=== PATIENT | female | born 1950 | race Caucasian/White ===

== ENCOUNTER 2019-03-05 18:40 | Inpatient (IN) | payer MEDICAID ==
[~2019-03-05] VITALS: Ht 157.4 cm; Wt 54.4 kg
[~2019-03-05 18:40] MED LIST: BIAXIN FILMTAB250 MG PO; CIPRO250 MG PO; CIPROFLOXACIN250 MG PO; CLONAZEPAM1 M1 PO; Carafate1 GM/10 ML PO; EXELON9.5 MG/24 T; LEVOTHYROXIN0.125 MG PO; LISINOPRIL10 M1 PO; LISINOPRIL5 MG PO; METFORMIN500 MG PO; MIRTAZAPINE15 M2 PO; MOTRIN800 MG PO; NORCO 5-325 TA1 EACH PO; NORVASC5 MG PO; OMEPRAZOLE D/R20 MG PO; OYSTER CAL 500500 MG PO; PRILOSEC20 M1 PO; PROTONIX40 MG PO; RISPERIDONE M-TA1 MG BC; SINGULAIR10 MG PO; SYNTHROID,LEV100 MCG PO; SYNTHROID,LEV125 MCG PO; VITAMIN D50000 I3 PO
[2019-03-05 18:48] VITALS: BP 124/44
[2019-03-05 19:15] LABS: BASO # 0.1 10*3/uL (0.0-0.1); BASO % 0.4 % (0.0-1.0); EOS # 0.2 10*3/uL (0.0-0.4); EOS % 1.4 % (1.0-4.0); HEMATOCRIT 42.6 % (37.0-47.0); HEMOGLOBIN 13.2 g/dl (12.0-16.0); LYMPH % 8.1 % (27.0-41.0); MEAN CELL VOLUME 95.5 fl (81.0-99.0); MEAN CORPUSCULAR HGB 29.6 pg (27.0-31.0); MONO # 1.2 10*3/uL (0.1-1.0); MONO % 9.2 % (3.0-9.0); NEUT # 10.1 10*3/uL (2.3-7.9); NEUT % 80.5 % (47.0-73.0); PLATELET COUNT AUTOMATED 188 10*3/uL (130-400); RED BLOOD COUNT 4.46 10*6/uL (4.10-5.10); RED CELL DISTRI WIDTH 15.1 % (0-14.5); WHITE BLOOD COUNT 12.5 10*3/uL (4.8-10.8)
[2019-03-05 19:32] LABS: ALBUMIN 3.4 gm/dl (3.1-4.5); ALKALINE PHOSPHATASE 125 U/L (45-117); BUN 20 mg/dl (7-24); CHLORIDE 105 mmol/L (98-107); POTASSIUM 4.5 mmol/L (3.5-5.1); SGOT/AST 41 IU/L (3-35); SGPT/ALT 45 U/L (12-78); SODIUM 138 mmol/L (136-145)
[2019-03-05 19:37] LABS: TROPONIN I < 0.015 ng/ml (<0.045)
--- NOTE | 2019-03-05 19:39 | NUR ---
PT IS AWARE WE NEED URINE SAMPLE BUT DOES NOT HAVE TO GO AT THIS TIME CALL LIGHT IN REACH
[2019-03-05 19:50] LABS: ACT PARTIAL THROMBO TIME 27.3 SECONDS (20.0-32.1)
--- NOTE | 2019-03-05 20:22 | NUR ---
URINE OBTAINED AND SENT PT REFUSED STRAIGHT CATH WAS ABLE TO SIT ON BEDSIDE COMMODE AND PROVIDE URINE
[2019-03-05 20:25] VITALS: BP 146/58
[2019-03-05 20:25] LABS: BILIRUBIN NEGATIVE (NEGATIVE); BLOOD 2+ (NEGATIVE); CLARITY CLOUDY (CLEAR); COLOR YELLOW (YELLOW); GLUCOSE NEGATIVE (NEGATIVE); KETONE NEGATIVE (NEGATIVE); LEUKO ESTERASE 1+ (NEGATIVE); NITRITE POSITIVE (NEGATIVE); PH 6.5 (5.0-9.0); SPECIFIC GRAVITY 1.025 (1.005-1.030); UROBILINOGEN 0.2 E.U./dl (0.2-1.0)
[2019-03-05 20:36] LABS: RBC 0-2 rbc/hpf (0-2)
[2019-03-05 20:37] LABS: BACTERIA 2+; MUCOUS 2+
[2019-03-05 21:00] VITALS: BP 127/43
--- NOTE | 2019-03-05 21:00 | NUR ---
A 68, admitted to 4E, under the services of Dr. CHINYERE PETTY,ASHLEY Orlando with a diagnosis of UTI, SYNCOPE & COLLAPSE. Chief complaint is SYCOPE. Patient arrived via stretcher from ER. Monitor applied. Initial assessment completed. Vital signs taken and recorded. DR. CHINYERE PETTY,ASHLEY Orlando notified of admission to the unit. Orders received. See assessment for past medical history, medications and allergies. Patient and/or family oriented to unit. [facility] visitation policy reviewed. Clothing/patient valuable form completed. XIANG BANG
[2019-03-05] MEDS ORDERED: ROBITUSSIN5 ML PO (21:24)
[2019-03-05] MEDS ORDERED: MELATONIN5 M1 PO (21:25)
[2019-03-05] MEDS ORDERED: NAMENDA10 MG PO (21:26)
[2019-03-05] MEDS ORDERED: POTASSIUM CHLO10 ME5 PO (21:27)
[2019-03-05] MEDS ORDERED: RIVASTIGMINE TAR6 M1 PO (21:27)
[2019-03-05] MEDS ORDERED: MAALOX ADVANCE355 M1 PO (21:29)
[2019-03-05] MEDS ORDERED: VITAMIN D50000 UNIT PO (21:30)
[2019-03-05] MEDS ORDERED: CRANBERRY300 MG PO (21:30)
[2019-03-05] MEDS ORDERED: TAB-A-VITE1 EACH PO (21:30)
[2019-03-05] MEDS ORDERED: MILK OF MA400 MG/5 M PO (21:32)
[2019-03-05] MEDS ORDERED: TYLENOL325 M1 PO (21:32)
[2019-03-05] MEDS ORDERED: PRILOSEC20 M1 PO (21:35)
--- NOTE | 2019-03-05 21:35 | NUR ---
MED REC UP TO DATE PER PAPERWORK FROM [facility].
--- NOTE | 2019-03-05 21:38 | NUR ---
ATTEMPTED TO CALL FOR ADMISSION ORDERS. NO ANSWER. WILL ATTEMPT TO CALL AGAIN.
--- NOTE | 2019-03-05 21:42 | NUR ---
RETURNED PHONE CALL. NEW ADMISSION ORDERS RECEIVED.
[2019-03-06] VITALS: BP 127/45
[2019-03-06 07:30] VITALS: BP 132/50
--- NOTE | 2019-03-06 08:05 | NUR ---
PHYSICAL THERAPY Maribeth received as well as PT orders will follow thank you Juany Lindsey PT
--- NOTE | 2019-03-06 08:35 | NUR ---
PT RESTING IN BED. RESP-EASY AND REGULAR. IVF INFUSING WITH NO PROBLEM. LUNGS DIMINISHED T/O. NO C/O AT THIS TIME. CALL LIGHT IN REACH. STUDENT NURSE WITH PT ALSO TODAY. WILL CON'T TO MONITOR.
--- NOTE | 2019-03-06 08:42 | NUR ---
ASSESSMENT COMPLETED AND DOCUMENTED, PT IS SITTING UP IN BED RESTING, NO COMPLAINTS OF PAIN OR DISCOMFORT AT THIS TIME. RUTHIE BENITO SPCC
--- NOTE | 2019-03-06 09:00 | NUR ---
Silica Mixer Operator in to see patient. She is a LTC resident at [facility] and plans to return there upon discharge. She is ambulatory with a walker. planner following. UTI, rocephin, UC pending.
--- NOTE | 2019-03-06 10:15 | NUR ---
PT. IS RESTING IN BED WHILE WATCHING TELEVISION, DENIES ANY PAIN AT THIS TIME, RUTHIE BENITO SPNRCC
--- NOTE | 2019-03-06 10:49 | NUR ---
Patient comes in from [facility]. Ok to return when medically stable for discharge.
[2019-03-06 12:00] VITALS: BP 132/54
--- NOTE | 2019-03-06 12:20 | NUR ---
PT. IS PREPARING FOR A BATH, HAS NO COMPLAINTS AT THIS TIME, PT, DENIES ANY PAIN. RUTHIE BENITO SPSANDROCC
--- NOTE | 2019-03-06 13:46 | NUR ---
PT. IS SITTNG UP IN BED WATCHING TELEVISON, DENIES ANY PAIN, VERY COOPERATIVE AND PLESANT RUTHIE BENITO SPNRCC
[2019-03-06 16:00] VITALS: BP 126/79
--- NOTE | 2019-03-06 16:05 | NUR ---
RESTING IN BED. NO C/O AT THIS TIME. RESP-EASY AND REGULAR. CALL LIGHT IN REACH. SEE SHIFT ASSESSMENT.
--- NOTE | 2019-03-06 16:14 | NUR ---
Nursing screen received and chart reviewed. Patient is admitted from [facility]. If patient should have a decline in ADLs from baseline then refer to OT. Thank you. Nely Leonardo OTR/l
[2019-03-06 20:00] VITALS: BP 113/71
--- NOTE | 2019-03-06 20:05 | NUR ---
PT REPOSITIONED SELF IN BED. RESP-EASY AND REGULAR. IVF INFUSING WITH NO PROBLEM. NO C/O AT THIS TIME. CALL LIGHT IN REACH.
--- NOTE | 2019-03-06 21:30 | NUR ---
TOLERATED ROUTINE MED WITH NO PROBLEM. CALL LIGHT IN REACH.
--- NOTE | 2019-03-06 22:40 | NUR ---
CALLED DR. PEOPLES REGARDING PT REQUESTING COUGH MEDICATION. ORDER TAKEN AND REVIEWED.
[2019-03-07] VITALS: BP 120/46
--- NOTE | 2019-03-07 08:10 | NUR ---
PT RESTING IN BED. RESP-EASY AND REGULAR. NO C/O AT THIS TIME. CALL LIGHT IN REACH. SEE SHIFT ASSESSMENT.
[2019-03-07 12:00] VITALS: BP 125/50
[2019-03-07 16:00] VITALS: BP 122/52
--- NOTE | 2019-03-07 16:00 | NUR ---
PT RESTING IN BED. NO C/O AT THIS TIME. CALL LIGHT IN REACH. SEE SHIFT ASSESSMENT.
--- NOTE | 2019-03-07 18:00 | NUR ---
TOLERATED ROUTINE MED WITH NO PROBLEM. NO C/O AT THIS TIME. CALL LIGHT IN REACH. BED ALARM ON.
--- NOTE | 2019-03-07 19:00 | NUR ---
SPOKE WITH DR. WHITLOCK REGARDING PT UNABLE TO SWALLOW MUCINEX AND WE ARE UNABLE TO CRUSH MED. HE DISCONTINUED IT. NO NEW ORDER.
[2019-03-07 20:00] VITALS: BP 105/46
[2019-03-08] VITALS: BP 124/49
--- NOTE | 2019-03-08 05:44 | NUR ---
24 HR. CHART CHECK COMPLETE.
--- NOTE | 2019-03-08 05:58 | NUR ---
PATIENT IS REFUSING ORTHOS AT THIS TIME.
[2019-03-08 07:36] VITALS: BP 130/60
--- NOTE | 2019-03-08 07:54 | NUR ---
PT LAYING IN BED, EATING BREAKFAST, ASSESSMENT COMPLETED, NO COMPLAINTS AT THIS TIME, WILL CONTINUE TO MONITOR. BAILEY LARSEN.RCC
--- NOTE | 2019-03-08 09:00 | NUR ---
Foreign Student Adviser in to see patient. No new needs or request at this time. When medically stable she will be discharged to [facility] where she is a LTC resident. cyber policy and strategy planner following. UTI, +UC treated with rocephin.
--- NOTE | 2019-03-08 10:33 | NUR ---
PT COOPERATIVE, LAYING IN BED WATCHING TELEVISION, NO COMPLAINTS AT THIS TIME, WILL CONTINUE TO MONITOR. [facility]AILEY KEY [facility]
[2019-03-08 12:18] VITALS: BP 120/60
--- NOTE | 2019-03-08 12:26 | NUR ---
PT IS COOPERATIVE, LAYING IN BED WATCHING TELEVISION, LOOKING OVER THE MENU FOR LUNCH, NO COMPLAINTS AT THIS TIME. BAILEY KEY SPCC
--- NOTE | 2019-03-08 13:22 | NUR ---
PT LAYING IN BED, CONVERSATING WITH ROOMMATE, NO COMPLAINTS AT THIS TIME, REPORT GIVEN TO JENNA. BAILEY KEY SPCC
--- NOTE | 2019-03-08 15:42 | NUR ---
PHYSICAL THERAPY Alice completed pt moderated complexity level 31452 recomend snf at discharge PT to work on transfers,lore kline AD for balance/safety and stregthening Juany Lindsey PT
[2019-03-08 16:00] VITALS: BP 103/70
--- NOTE | 2019-03-08 19:15 | NUR ---
24 HR. CHART CHECK COMPLETE.
[2019-03-08 20:00] VITALS: BP 122/80
--- NOTE | 2019-03-08 21:30 | NUR ---
PREVIOUS IV LEAKING. NEW #24G IV STARTED IN PATIENTS RIGHT ARM ACCORDING TO POLICY AND PROCEDURE. PATIENT TOLERATED WELL, CALL LIGHT IS WITHIN REACH.
[2019-03-09] VITALS: BP 134/71
--- NOTE | 2019-03-09 07:22 | NUR ---
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
[2019-03-09 08:00] VITALS: BP 110/50; BP 117/54
--- NOTE | 2019-03-09 08:15 | NUR ---
Discussed discharge planning with Dr. Keller. Plan is to discharge patient today to [facility] where she is a LTC resident. planner scheduler following.
--- NOTE | 2019-03-09 09:38 | NUR ---
PHYSICAL THERAPY Patient presented to therapy in supine in bed with head of bed elevated and report of no pain or other complaints. Patient gives informed consent for treatment. Patient was identified by name and on wristband. Patient performed supine to sitting on EOB transfer with SBA. Patient sit to stand from EOB with MIN A X 1. Patient performed ambulation with WH WALKER and CGA X 1 for 50' x 1 and no LOB. Patient sat on EOB and performed bilateral LE ther ex x 10 reps each in all planes of movement for strengthening in order to improve patient's functional mobilitty. Patient transferred back to supine in bed with SBA. Patient was left in supine in bed with call light within reach, bed alarm activated, and head of bed elevated. Patient was 1:1 with this RIG MANAGER for 17 minutes total. EDSON GOSS RIG MANAGER
[2019-03-09] MEDS ORDERED: AUGMENTIN 875-875 MG PO (10:30)
--- NOTE | 2019-03-09 11:14 | NUR ---
Patient is discharged to return to [facility]. [facility], nursing/wardrobe specialty worker and legal guardian all notified.
[2019-03-09 12:00] VITALS: BP 120/62
--- NOTE | 2019-03-09 12:04 | NUR ---
ELECTRICAL PROSPECTING ENGINEER CALLED AT THIS TIME REGARDING 8 BEAT RUN OF V-TACH. PT ASYMPTOMATIC. NEW ORDERS RECEIVED.
--- NOTE | 2019-03-09 12:05 | NUR ---
OFFICE NOTIFIED OF CONSULT.
--- NOTE | 2019-03-09 12:08 | NUR ---
Patients discharge was cancelled due to run of V-tach. Ambulance cancelled, message left for legal guardian, [facility] notified
--- NOTE | 2019-03-09 12:31 | NUR ---
IN TO SEE PATIENT REGARDING CARDIOLOGY CONSULT.
--- NOTE | 2019-03-09 13:42 | NUR ---
PHYSICAL THERAPY Patient declined therapy this afternoon due to waiting to see Dr. Greco , her stage producer about a potential heart issue. No therapy provided for this reason this afternoon. EDSON GOSS FREELANCE PROGRAMMER/APP DEVELOPER
[2019-03-09 14:26] LABS: ALKALINE PHOSPHATASE 85 U/L (45-117); BUN 19 mg/dl (7-24); CHLORIDE 108 mmol/L (98-107); CREATININE 1.08 mg/dL (0.55-1.02); POTASSIUM 3.8 mmol/L (3.5-5.1); SGOT/AST 34 IU/L (3-35); SGPT/ALT 40 U/L (12-78); SODIUM 139 mmol/L (136-145); TOTAL PROTEIN 7.4 gm/dL (6.4-8.2)
[2019-03-09 16:00] VITALS: BP 119/61
[2019-03-09 20:00] VITALS: BP 121/64
--- NOTE | 2019-03-09 20:12 | NUR ---
24 HR chart check completed.
--- NOTE | 2019-03-09 20:45 | NUR ---
RESTING IN BED, NO DISTRESS NOTED. RESPIRATIONS EASY. LUNGS DIMINISHED, CLEAR. PULSE OX 92% RA. CALL LIGHT WITHIN REACH. NO VOICED COMPLAINTS. BED ALARM MAINTAINED FOR SAFETY
--- NOTE | 2019-03-09 23:00 | NUR ---
SLEEPING, AWAKENS EASILY. NO DISTRESS NOTED. NO VOICED COMPLAINTS
[2019-03-10] VITALS: BP 111/89
--- NOTE | 2019-03-10 01:00 | NUR ---
SLEEPING. NO DISTRESS NOTED. RESPIRATIONS EASY. VSS. CALL LIGHT WITHIN REACH. BED ALARM MAINTAINED FOR SAFETY
--- NOTE | 2019-03-10 06:00 | NUR ---
SLEPT THROUGHOUT NIGHT WITH NO DISTRESS NOTED. RESPIRATIONS EASY. CALL LIGHT WITHIN REACH. NO VOICED COMPLAINTS THIS SHIFT. NPO STATUS MAINTAINED FOR TESTING THIS AM
--- NOTE | 2019-03-10 07:30 | NUR ---
PT LAYING IN BED RESTING, ASSESSMENT COMPLETED, NPO STATUS MAINTAINED, WILL CONTINUE TO MONITOR. [facility]AILEY [facility]
[2019-03-10 07:32] VITALS: BP 130/80
--- NOTE | 2019-03-10 07:59 | NUR ---
Updated clinicals faxed to [facility] for review. patient is [facility] and ok to return when medically stable for discharge.
--- NOTE | 2019-03-10 08:25 | NUR ---
PHYSICAL THERAPY Patient was resting supine in bed this am when approached for therapy visit and reports just being IV prepped for a stress test. Will continue per POC as able later this date. Micha Reveles, INSURANCE ANALYST
--- NOTE | 2019-03-10 08:44 | NUR ---
PT OFF FLOOR FOR STRESS TEST.
--- NOTE | 2019-03-10 09:00 | NUR ---
Shrub Planter in to see patient. No new needs or request at this time. When medically stable she will be discharged to [facility] where she is a LTC resident. maintenance planner following. She is scheduled for a stress test today.
--- NOTE | 2019-03-10 09:30 | NUR ---
INFORMED CONSENT OBTAINED FOR LEXISCAN NUCLEAR STRESS TEST WITH DR. ANDERSON. RESTING EKG NSR WITH A RESTING HR OF 79 AND BP OF 100/58. LUNGS CLEAR WITH SPO2 OF 95% ON ROOM AIR. PT COMPLETED A 1:00 LEXISCAN PROTOCOL RECEIVING LEXISCAN 0.4 MG IV OVER 10 SECONDS. HAD NO CHEST PAIN OR ANY EKG CHANGES. HAD AN OCCASIONAL PVC. HAD C/O OF FEELING SHORTNESS OF BREATH THAT WAS RELIEVED IN RECOVERY. HAD A PEAK HR OF 128 WITH BP 102/48. LAST RECOVERY HR OF 109 WITH BP OF 102/64. AWAITING SCANNING IN STABLE CONDITION.
--- NOTE | 2019-03-10 11:14 | NUR ---
PT LAYING IN BED RESTING, RETURNED FROM STRESS TEST, NO COMPLAINTS AT THIS TIME, WILL CONTINUE TO MONITER. BAILEY KEY SPNRCC
[2019-03-10 12:49] VITALS: BP 120/80
--- NOTE | 2019-03-10 12:55 | NUR ---
PT LAYING IN BED ORDERING LUNCH, NO COMPLAINTS AT THIS TIME, WILL CONTINUE TO MONITOR. BAILEY KEY [facility]
--- NOTE | 2019-03-10 13:25 | NUR ---
PHYSICAL THERAPY Patient was resting comfortably supine in bed this pm when approached for therapy visit and reports feeling too tired to participate following recent return from stress test. Patient remained in bed and will continue per POC as tolerated. Micha Reveles, WHEEL MOLDER
--- NOTE | 2019-03-10 13:33 | NUR ---
PT LAYING IN BED, REPORT GIVEN TO JOAQUIN. BAILEY KEY SPNRCC
--- NOTE | 2019-03-10 14:45 | NUR ---
PHYSICAL THERAPY CO-SIGN I approve of the Physical Therapy notes written above. Juany Lindsey PT
[2019-03-10 16:00] VITALS: BP 118/44
--- NOTE | 2019-03-10 19:55 | NUR ---
24 HR/ENTIRE chart check completed.
[2019-03-10 20:00] VITALS: BP 105/42
[2019-03-11] VITALS: BP 121/52
--- NOTE | 2019-03-11 00:15 | NUR ---
A 68, admitted to , under the services of Dr. CHINYERE PETTY,ASHLEY Orlando with a diagnosis of COPD, CHEST HEAVINESS. Chief complaint is SOB. Patient arrived via bed from ER. Monitor applied. Initial assessment completed. Vital signs taken and recorded. DR. CHINYERE PETTY,ASHLEY Orlando notified of admission to the unit. Orders received. See assessment for past medical history, medications and allergies. Patient and/or family oriented to unit. [facility] visitation policy reviewed. Clothing/patient valuable form completed. LOVELY HERNANDEZ
--- NOTE | 2019-03-11 03:48 | NUR ---
Patient sleeping. Respirations relaxed and easy. Siderails up . [place] on. LOVELY HERNANDEZ
--- NOTE | 2019-03-11 03:52 | NUR ---
24 HR chart check completed.
--- NOTE | 2019-03-11 09:16 | NUR ---
CCDISA Discharge instructions reviewed with patient/family. Patient receptive and verbalizes understanding. Follow-up care arranged. Written instructions given to patient/family. JOAQUIN GRANADOS
== END 2019-03-11 09:16 | DRG 204 ==
LOC: ED 18:40 → EDHOLD 20:31 → 4E 20:31
PROVIDERS: Emergency Medicine; Hospitalist; Nurse Practitioner Family; ADMIT Internal Medicine
PROC: 4A02XM4 Measurement of Cardiac Total Activity, External Approach (ICD-10-PCS; principal; 2019-03-10)
PROC: 3E073KZ Introduction of Other Diagnostic Substance into Coronary Artery, Percutaneous Approach (ICD-10-PCS; 2019-03-10)
DX: R55 Syncope and collapse (principal); N30.01 Acute cystitis with hematuria; I47.2 Ventricular tachycardia; B96.1 Klebsiella pneumoniae [K. pneumoniae] as the cause of diseases classified elsewhere; R62.7 Adult failure to thrive; R54 Age-related physical debility; F33.3 Major depressive disorder, recurrent, severe with psychotic symptoms; G30.9 Alzheimer's disease, unspecified; F02.80 Dementia in other diseases classified elsewhere, unspecified severity, without behavioral disturbance, psychotic disturbance, mood disturbance, and anxiety; K21.0 Gastro-esophageal reflux disease with esophagitis; E03.9 Hypothyroidism, unspecified; F41.1 Generalized anxiety disorder; J45.21 Mild intermittent asthma with (acute) exacerbation; E11.9 Type 2 diabetes mellitus without complications; I10 Essential (primary) hypertension; Z68.21 Body mass index [BMI] 21.0-21.9, adult; Z88.8 Allergy status to other drugs, medicaments and biological substances; Z80.1 Family history of malignant neoplasm of trachea, bronchus and lung; Z82.49 Family history of ischemic heart disease and other diseases of the circulatory system; Z82.3 Family history of stroke; Z87.11 Personal history of peptic ulcer disease; Z79.899 Other long term (current) drug therapy; Z85.89 Personal history of malignant neoplasm of other organs and systems

== ENCOUNTER 2019-04-06 18:19 | Emergency (ER) | payer MEDICAID ==
[~2019-04-06] VITALS: Ht 157.4 cm; Wt 52.6 kg
[~2019-04-06 18:19] MED LIST changes: +AUGMENTIN 875-875 MG PO; +CRANBERRY300 MG PO; +MAALOX ADVANCE355 M1 PO; +MELATONIN5 M1 PO; +MILK OF MA400 MG/5 M PO; +NAMENDA10 MG PO; +POTASSIUM CHLO10 ME5 PO; +RIVASTIGMINE TAR6 M1 PO; +ROBITUSSIN5 ML PO; +TAB-A-VITE1 EACH PO; +TYLENOL325 M1 PO; +VITAMIN D50000 UNIT PO
[2019-04-06 18:56] LABS: BASO # 0.1 10*3/uL (0.0-0.1); BASO % 0.5 % (0.0-1.0); EOS # 0.4 10*3/uL (0.0-0.4); EOS % 3.7 % (1.0-4.0); HEMATOCRIT 43.2 % (37.0-47.0); HEMOGLOBIN 13.3 g/dl (12.0-16.0); LYMPH # 2.4 10*3/uL (1.3-4.4); MEAN CELL VOLUME 95.6 fl (81.0-99.0); MEAN CORPUSCULAR HGB 29.4 pg (27.0-31.0); MEAN CORPUSCULAR HGB CONC 30.8 g/dl (33.0-37.0); MEAN PLATELET VOLUME 10.1 fl (9.6-12.3); MONO # 0.9 10*3/uL (0.1-1.0); MONO % 8.5 % (3.0-9.0); NEUT # 6.7 10*3/uL (2.3-7.9); NEUT % 63.7 % (47.0-73.0); PLATELET COUNT AUTOMATED 182 10*3/uL (130-400); RED BLOOD COUNT 4.52 10*6/uL (4.10-5.10); RED CELL DISTRI WIDTH 15.1 % (0-14.5); WHITE BLOOD COUNT 10.5 10*3/uL (4.8-10.8)
[2019-04-06 19:15] LABS: ALBUMIN 3.2 gm/dl (3.1-4.5); ALKALINE PHOSPHATASE 114 U/L (45-117); BUN 21 mg/dl (7-24); CHLORIDE 113 mmol/L (98-107); CREATININE 1.29 mg/dL (0.55-1.02); LIPASE 190 U/L (73-393); POTASSIUM 4.6 mmol/L (3.5-5.1); SGOT/AST 32 IU/L (3-35); SGPT/ALT 33 U/L (12-78); SODIUM 139 mmol/L (136-145); TOTAL PROTEIN 7.5 gm/dL (6.4-8.2)
[2019-04-06 19:21] LABS: TROPONIN I < 0.015 ng/ml (<0.045)
[2019-04-06 19:24] LABS: ACT PARTIAL THROMBO TIME 27.3 SECONDS (20.0-32.1); INTERNATIONAL NORM RATIO 0.9 (2.0-3.5)
[2019-04-06 22:51] LABS: BILIRUBIN NEGATIVE (NEGATIVE); BLOOD NEGATIVE (NEGATIVE); CLARITY CLEAR (CLEAR); COLOR YELLOW (YELLOW); GLUCOSE NEGATIVE (NEGATIVE); KETONE NEGATIVE (NEGATIVE); LEUKO ESTERASE NEGATIVE (NEGATIVE); NITRITE NEGATIVE (NEGATIVE); PH 5.5 (5.0-9.0); SPECIFIC GRAVITY 1.015 (1.005-1.030); UROBILINOGEN 0.2 E.U./dl (0.2-1.0)
[2019-04-06 23:00] LABS: BACTERIA 2+
[2019-04-06] MEDS ORDERED: Ipratropium Brom3 ML INH (23:21)
[2019-04-06] MEDS ORDERED: CRANBERRY200 MG PO (23:22)
[2019-04-06] MEDS ORDERED: FLORASTOR250 MG PO (23:24)
== END 2019-04-06 23:55 | disposition other institution (70) ==
LOC: ED 18:19
PROVIDERS: Nurse Practitioner Family
DX: R55 Syncope and collapse (principal); E11.9 Type 2 diabetes mellitus without complications; K21.9 Gastro-esophageal reflux disease without esophagitis; I10 Essential (primary) hypertension; E03.9 Hypothyroidism, unspecified; J45.909 Unspecified asthma, uncomplicated; F32.9 Major depressive disorder, single episode, unspecified; F41.9 Anxiety disorder, unspecified; Z88.8 Allergy status to other drugs, medicaments and biological substances; Z79.899 Other long term (current) drug therapy

== ENCOUNTER 2021-01-03 12:24 | Emergency (ER) | payer MEDICAID ==
[~2021-01-03 12:24] MED LIST changes: +CRANBERRY200 MG PO; +FLORASTOR250 MG PO; +Ipratropium Brom3 ML INH
[2021-01-03 14:29] LABS: BILIRUBIN Negative (Negative); BLOOD Negative (Negative); CLARITY Cloudy (Clear); COLOR Yellow (Yellow); GLUCOSE Negative (Negative); KETONE Negative (Negative); LEUKO ESTERASE 1+ (Negative); NITRITE Negative (Negative); SPECIFIC GRAVITY 1.015 (1.001-1.030); UROBILINOGEN 0.2 E.U./dl (0.0-1.0)
[2021-01-03 15:19] LABS: BACTERIA 4+; WBC 51-100 wbc/hpf (0-5)
[2021-01-03] MEDS ORDERED: CIPRO500 MG PO (16:09)
== END 2021-01-03 18:00 | disposition home or self-care (01) ==
LOC: ED 12:24
PROVIDERS: Physician Assistant
DX: N39.0 Urinary tract infection, site not specified (principal); R46.89 Other symptoms and signs involving appearance and behavior; Z88.8 Allergy status to other drugs, medicaments and biological substances; Z79.899 Other long term (current) drug therapy

== ENCOUNTER → 2021-02-24 | Outpatient (CLI) | payer MEDICAID ==
[~2021-02-24] MED LIST changes: +CIPRO500 MG PO
== END | disposition home or self-care (01) ==
LOC: US 09:00
PROVIDERS: ATTEND Internal Medicine
DX: D25.9 Leiomyoma of uterus, unspecified (principal); N83.292 Other ovarian cyst, left side; G30.9 Alzheimer's disease, unspecified; R65.10 Systemic inflammatory response syndrome (SIRS) of non-infectious origin without acute organ dysfunction; M62.81 Muscle weakness (generalized)

== ENCOUNTER 2024-02-25 09:38 | Emergency (ER) | payer MEDICAID ==
[~2024-02-25] VITALS: Ht 154.9 cm; Wt 50.1 kg
[2024-02-25] MEDS ORDERED: VITAMIN D325 MCG PO (09:57)
[2024-02-25] MEDS ORDERED: COL-RITE100 M1 PO (09:58)
[2024-02-25] MEDS ORDERED: DEPAKOTE125 M1 PO (09:58)
[2024-02-25] MEDS ORDERED: GLIMEPIRIDE2 MG PO (09:59)
[2024-02-25 10:38] LABS: BILIRUBIN Negative (Negative); BLOOD 2+ (Negative); CLARITY Turbid (Clear); COLOR Yellow (Yellow); GLUCOSE Negative (Negative); KETONE Trace (Negative); LEUKO ESTERASE 3+ (Negative); NITRITE Positive (Negative); SPECIFIC GRAVITY 1.015 (1.001-1.030); UROBILINOGEN 0.2 E.U./dl (0.0-1.0)
[2024-02-25 10:40] VITALS: BP 116/40
[2024-02-25 11:11] LABS: BACTERIA 4+; WBC TNTC wbc/hpf (0-5)
[2024-02-25 11:22] LABS: BASO % 0.5 % (0.0-1.0); EOS # 0.4 10*3/uL (0.0-0.4); EOS % 5.5 % (1.0-4.0); HEMATOCRIT 38.5 % (37.0-47.0); MEAN CELL VOLUME 96.3 fl (81.0-99.0); MEAN CORPUSCULAR HGB 29.3 pg (27.0-31.0); MEAN CORPUSCULAR HGB CONC 30.4 g/dl (33.0-37.0); MONO # 0.7 10*3/uL (0.1-1.0); MONO % 8.8 % (3.0-9.0); NEUT # 4.9 10*3/uL (2.3-7.9); NEUT % 62.5 % (47.0-73.0); PLATELET COUNT AUTOMATED 168 10*3/uL (130-400); WHITE BLOOD COUNT 7.8 10*3/uL (4.8-10.8)
[2024-02-25 11:34] LABS: ACT PARTIAL THROMBO TIME 27.1 SECONDS (20.0-32.1)
[2024-02-25 11:44] LABS: POTASSIUM 4.7 mmol/L (3.4-5.1)
[2024-02-25] MEDS ORDERED: Iodixanol 320 100 ML VIAL IV ONE (12:00)
[2024-02-25 19:01] LABS: HEMATOCRIT 38.8 % (37.0-47.0)
[2024-02-25] MEDS ORDERED: METOPROLOL SUCC25 M2 PO (19:46)
[2024-02-25] MEDS ORDERED: Mirtazapine 15 MG TAB PO SCH (21:00)
[2024-02-25] MEDS ORDERED: Memantine Hydrochloride 10 MG TAB PO SCH (22:00)
[2024-02-25] MEDS ORDERED: Rivastigmine Tartrate 3 MG CAP PO SCH (22:00)
[2024-02-25] MEDS ORDERED: DIVALPROEX SODIUM 125 MG TAB PO SCH (22:00)
[2024-02-25] MEDS ORDERED: METOPROLOL SUCCINATE XR 25 MG TAB PO SCH (22:00)
== END 2024-02-26 09:47 | disposition short-term general hospital (02) ==
LOC: ED 09:38
PROVIDERS: Emergency Medicine
DX: N95.0 Postmenopausal bleeding (principal); D25.9 Leiomyoma of uterus, unspecified; N83.202 Unspecified ovarian cyst, left side; E11.9 Type 2 diabetes mellitus without complications; I10 Essential (primary) hypertension; K21.9 Gastro-esophageal reflux disease without esophagitis; D64.9 Anemia, unspecified; J45.909 Unspecified asthma, uncomplicated; F41.9 Anxiety disorder, unspecified; Z88.8 Allergy status to other drugs, medicaments and biological substances; Z90.89 Acquired absence of other organs; Z98.890 Other specified postprocedural states; Z79.899 Other long term (current) drug therapy

== ENCOUNTER 2024-02-29 16:45 | Emergency (ER) | payer MEDICAID ==
[~2024-02-29] VITALS: Ht 154.9 cm; Wt 55.4 kg
[~2024-02-29 16:45] MED LIST changes: +COL-RITE100 M1 PO; +DEPAKOTE125 M1 PO; +GLIMEPIRIDE2 MG PO; +METOPROLOL SUCC25 M2 PO; +VITAMIN D325 MCG PO
== END 2024-02-29 19:30 ==
LOC: ED 16:45
DX: S00.411A Abrasion of right ear, initial encounter (principal); Z88.8 Allergy status to other drugs, medicaments and biological substances; Z98.890 Other specified postprocedural states; Z90.49 Acquired absence of other specified parts of digestive tract; Z79.84 Long term (current) use of oral hypoglycemic drugs; Z79.899 Other long term (current) drug therapy; W03.XXXA Other fall on same level due to collision with another person, initial encounter; Y93.01 Activity, walking, marching and hiking; Y92.128 Other place in nursing home as the place of occurrence of the external cause; Y99.8 Other external cause status